=== PATIENT | female | born 1980 | race Caucasian/White ===

== ENCOUNTER → 2016-08-14 | Outpatient (CLI) | payer SELFPAY ==
[~2016-08-14] MED LIST: *MEPERIDINE 25 MG INJ VIAL PERIprocedural Use ONLY ONE; IBUP600 PO; PREN0.01 PO; ZOLO50TA PO
[2016-08-14 11:35] LABS: AUTOMATED NEUTROPHIL # 8.1 TH/MM3 (1.8-7.7); BASOPHIL % 0.4 % (0.0-2.0); EOSINOPHIL # 0.1 TH/MM3 (0-0.4); EOSINOPHIL % 0.8 % (0.0-4.0); HEMATOCRIT 39.6 % (35.0-46.0); HEMO FLAGS DIFF FINAL; LYMPH % 14.8 % (9.0-44.0); LYMPHOCYTE # 1.6 TH/MM3 (1.0-4.8); MEAN CELL VOLUME 85.3 FL (80.0-100.0); MEAN CORPUSCULAR HEMOGLOBIN 29.7 PG (27.0-34.0); MEAN CORPUSCULAR HGB CONC 34.8 % (32.0-36.0); MONO % 7.4 % (0.0-8.0); NEUT % 76.6 % (16.0-70.0); PLATELET COUNT 225 TH/MM3 (150-450); RED BLOOD COUNT 4.64 MIL/MM3 (4.00-5.30); RED CELL DISTRIBUTION WIDTH 12.6 % (11.6-17.2); WHITE BLOOD COUNT 10.5 TH/MM3 (4.0-11.0)
== END ==
LOC: CPRE 10:36
PROVIDERS: ATTEND Obstetrics & Gynecology
DX: O02.1 Missed abortion (principal); Z01.812 Encounter for preprocedural laboratory examination
CPT/HCPCS: 36415; 85025; 86850; 86900; 86901; J2175

== ENCOUNTER → 2016-08-15 | Day surgery (SDC) | payer OTHER ==
--- NOTE | 2016-08-14 13:15 | MH ---
cc: JONAS OKEEFE M.D. DATE OF ADMISSION: 08/15/2016 DATE OF 1980 PATIENT HISTORY The patient is a 36-year-old female, 2, para 1. Last menstrual period was approximately June 09, 2016. The patient presents for new obstetrical care revealing a nonviable gestation measuring 6 weeks and 1 day. The patient's gestational age based from her last menstrual cycle would have been 9 weeks, 3 days. A nonviable pole and no cardiac activity documented by transvaginal ultrasound, fetus measuring 6 weeks and 1 day. PAST MEDICAL HISTORY The patient denies any systemic or chronic disease state. ALLERGIES She has no known drug allergies. SURGICAL HISTORY 1. She had a history of Bartholin's cyst in 2007 with revision in 2011. 2. Status post LEEP excisional biopsy of the cervix in 2005. CURRENT MEDICATIONS vitamins. SOCIAL HISTORY She does not use alcohol, tobacco or any illicit substances. She is . She is a pharmacist. OBSTETRICAL HISTORY The patient had a full-term delivery, a healthy female on June 15, 2015. FAMILY HISTORY Noncontributory. PHYSICAL EXAMINATION GENERAL: The patient is well-appearing, well-nourished female in no acute distress. VITAL SIGNS: Stable. Blood pressure is 120/82, pulse and respiratory rate normal. She is afebrile. HEENT/NECK: No adenopathy or thyromegaly. LUNGS: Clear in all acevedo. CARDIAC: Regular rate and rhythm. ABDOMEN: Flat, soft, nontender. No rebound or guarding. EXTREMITIES: Symmetrical, full range of motion. There is no cyanosis, clubbing or edema. NEUROLOGIC: Exam is grossly intact, nonfocal. PELVIC EXAM: Deferred. Visualization of the cervix was closed. There was no vaginal bleeding identified. ASSESSMENT The patient at 9 weeks intrauterine gestation with a nonviable pole at 6 weeks consistent with a missed . PLAN OF MANAGEMENT 1. D&C with suctioned. 2. The patient's blood type is A-negative. RhoGAM indicated. MD RODNEY Davison/SHAKIRA /12:57 PM /1:07 PM
[~2016-08-15] MED LIST changes: -*MEPERIDINE 25 MG INJ VIAL PERIprocedural Use ONLY ONE; +CHLORHEXIDINE GLUCONATE 2 % 1 PACK (2 CLOTHS) TOPICAL PRN; +DEXAMETHASONE SOD PHOS 4 MG/ML VIAL ONE; +DO NOT ADM ANY ANTICOAGULANT DRUGS PRN; -IBUP600 PO; +IBUPROFEN 600 MG TAB PO PRN; +INSULIN HUMAN REGULAR 1,000 UNITS/10 ML VIAL SQ PRN; +KETOROLAC TROMETHAMINE 30 MG/ML (IVP) VIAL IVP PRN; +KETOROLAC TROMETHAMINE 60 MG/2 ML (IM) VIAL IM ONE; +LACTATED RINGER'S 1000 ML INJ 1,000 ML IV ONE; +LACTATED RINGER'S 1000 ML INJ 1,000 ML IV SCH; +LACTATED RINGER'S 1000 ML IV PRN; +LORazepam 0.5 MG TAB PO PRN; +MEPERIDINE HCL 25 MG/ML VIAL IV ONE; +MEPERIDINE HCL 25 MG/ML VIAL IV PUSH ONE; +METHYLERGONOVINE MALEATE 0.2 MG/ML VIAL IM ONE; +METOPROLOL TARTRATE 25 MG TAB PO PRN; +MIDAZOLAM HCL 2 MG/2 ML VIAL ONE; +ONDANSETRON HCL 4 MG/2 ML VIAL IV PUSH ONE; +ONDANSETRON HCL 4 MG/2 ML VIAL IVP PRN; +OXYTOCIN 10 UNIT/ML AMP ONE; +POVIDONE IODINE 5% (ANTISEPSIS KIT) 4 APPLICATIONS EACH NARE PRN; -PREN0.01 PO; +PROPOFOL 200 MG/20 ML AMP IV ONE; +RHO D IMMUNE GLOBULIN IV ONE; +SODIUM CHLORID 0.9% 500 ML IV PRN; +SODIUM CHLORIDE 0.9% FLUSH 10 ML FLUSH IV FLUSH PRN; +SODIUM CHLORIDE 0.9% FLUSH 10 ML FLUSH IV FLUSH SCH; -ZOLO50TA PO; +ceFAZolin 2 GM PREMIX 50 ML IV SCH; +ceFAZolin 2 GM PREMIX 50 ML ONE; +oxyCODONE/ACETAMINOPHEN 5 MG/325 MG TAB PO PRN
[2016-08-15 08:16] VITALS: BP 101/63; PULSE 66; RESP 16; TEMP 98.4; O2SAT 100
--- NOTE | 2016-08-15 11:34 | MP ---
cc: JONAS OKEEFE M.D. DATE OF SURGERY: 08/15/2016 DATE OF : 1980 PREOPERATIVE DIAGNOSIS Approximately nine weeks gestation with missed AB, ultrasound confirmed nonviable six-week intrauterine , no cardiac activity. The patient's blood type is A-negative, RhoGAM indicated. PROCEDURE D&C with suction, exam under anesthesia. POSTOPERATIVE DIAGNOSIS Approximately nine weeks gestation with missed AB, ultrasound confirmed nonviable six-week intrauterine , no cardiac activity. The patient's blood type is A-negative, RhoGAM indicated. SURGEON Donald ANESTHESIA General LMA. ESTIMATED BLOOD LOSS Minimal. DRAINS None. OPERATIVE FINDINGS Uterus was anteverted, measured about 9 cm in length. SPECIMEN Products of conception. INDICATION FOR PROCEDURE The patient presented for her first obstetrical visit. Ultrasound revealed a six-week intrauterine gestation with no cardiac activity. She would have been approximately nine weeks based on her last menstrual period. After reviewing the options the patient elected for D&C with suction. The patient's blood type is A-negative, RhoGAM indicated. DETAILS OF PROCEDURE The patient was taken to the operating room and under general anesthesia had an LMA placed. She was carefully positioned in dorsal lithotomy position using candy-cane stirrups. She received Ancef one gram prophylactically. She had sequentials placed on the lower extremities for VTE prophylaxis. After she was prepped and draped a timeout was conducted and agreed by all present in the room. A simple bivalve retractor was used to examine the cervix which was closed, no active bleeding. A single-tooth tenaculum was secured anteriorly and then the uterus was sounded to about 9 cm. The cervix was then dilated and then a #8 curved suction tip was used to evacuate the products of conception. This was followed by the use of a handheld curette to examine the cavity and confirm removal of all products of conception. The patient received Methergine 0.2 mg and RhoGAM was ordered as indicated. At the completion of the case there was a small anterior cervical laceration from the tenaculum site which was sutured with a simple interrupted suture of 2-0 chromic. Irrigation of the vaginal vault was conducted, no active bleeding or hematoma. The patient was stable. At the completion of the case the patient was taken to the recovery room on room air. MD RODNEY Davison/GISELLA /10:53 AM /11:28 AM
[2016-08-15 12:45] VITALS: BP 103/58; PULSE 59; RESP 16; TEMP 98.2; O2SAT 100
== END | disposition home or self-care (01) ==
LOC: HSDC 07:36
PROVIDERS: ATTEND Obstetrics & Gynecology
DX: O02.1 Missed abortion (principal)
CPT/HCPCS: 59820; 88305; 90384; J0690; J1100; J1885; J2175; J2210; J2250; J2405; J2590; J2792; J3010; J7120; J2790

== ENCOUNTER → 2016-12-31 | Outpatient (CLI) | payer OTHER ==
--- NOTE | 2016-12-31 10:40 | EKG ---
Date Performed: 12/31/2016 Time Performed: 08:47:14 PTAGE: 36 years EKG: Sinus arrhythmia. Possible anterior infarct - age undetermined Inferior/lateral T wave landa ges are nonspecific Abnormal ECG NO PREVIOUS TRACING DOCTOR: Ga Armenta Interpretating Date/Time 12/31/2016 10:37:49
--- NOTE | 2017-01-03 19:40 | HM ---
Date Performed: 12/31/2016 Time Performed: 07:56:00 HOOKUP DATE: 12/31/16 07:56:00 AM Mon ANALYSIS START TIME: 12/31/2016 8:01:00 AM ANALYSIS END TIME: 01/01/2017 8:05:00 AM PATIENT AGE: 36 PATIENT HEIGHT PATIENT WEIGHT DRUG LIST PATIENT DIAGNOSIS TEST NARRATIVE: The patient's average heart rate was 82 BPM. Heart rates greater than 120 B PM were noted 1% of the time. No episodes of bradycardia were noted. No pauses exceeding 2.0 sec onds were noted. 9 ventricular ectopics, which represented < 1% of the total beat count, were not ed. The highest ventricular ectopic frequency occurred from 03:00 PM to 04:00 PM Mon. During this t rajiv 2 VE(s) occurred. Ventricular ectopics were observed as 9 isolated beat(s) only. No couplets or runs were noted. No supraventricular ectopics were noted. No episodes of ST depression (defi estefania as -1.0 mm or more) were noted in channel 1. No episodes of ST depression (defined as -1.0 mm or more) were noted in channel 2. No episodes of ST depression (defined as -1.0 mm or more) were noted in channel 3. TEST INTERPRETATION: Patient undergoes a holter monitor for unstated indications. She remain in Sinus rhythm throughout the monitoring session with a heart rate varying from 50 to 138 BPM. The tachycardia is a ssociated with motion artifact, but looks to be sinus tachycardia appearing about 2.25PM with a maxim um rate of 138 BPM. This occurs while patient is eating lunch and when the patient is more active. Th ere is one episode of a racing heart at 10.55 AM and no specific print out is made, but 10.01 and 11. 01 AM the patient is in completely normal sinus rhythm. Rare PVC'S are noted. Conclusion: A relativel y normal holter monitor, except for episode of sinus tachycardia which is probably associated with ac tivity One episode of a racing heart, but without a specific print out, the print out close to that t rajiv shows just sinus rhythm Signed by : Poonam Nazario
== END ==
LOC: HCAV 08:29
PROVIDERS: ATTEND Obstetrics & Gynecology
DX: I49.8 Other specified cardiac arrhythmias (principal)
CPT/HCPCS: 93005; 93225; 93226

== ENCOUNTER → 2017-03-06 | Outpatient (CLI) | payer OTHER | LOC: HPND 08:05 | PROVIDERS: ATTEND Obstetrics & Gynecology | DX: O35.1XX0 Maternal care for (suspected) chromosomal abnormality in fetus, not applicable or unspecified (principal) | CPT/HCPCS: 76811 ==

== ENCOUNTER → 2017-04-03 | Outpatient (CLI) | payer OTHER | LOC: HPND 11:23 | PROVIDERS: ATTEND Obstetrics & Gynecology | DX: O35.1XX0 Maternal care for (suspected) chromosomal abnormality in fetus, not applicable or unspecified (principal) | CPT/HCPCS: 36415; 76811; 76816; 96372 ==

== ENCOUNTER → 2017-05-01 | Outpatient (CLI) | payer OTHER | LOC: HPND 09:02 | PROVIDERS: ATTEND Obstetrics & Gynecology | DX: O35.1XX0 Maternal care for (suspected) chromosomal abnormality in fetus, not applicable or unspecified (principal) | CPT/HCPCS: 76816 ==

== ENCOUNTER → 2017-05-29 | Outpatient (CLI) | payer OTHER | LOC: HPND 09:14 | PROVIDERS: ATTEND Obstetrics & Gynecology | DX: O35.1XX0 Maternal care for (suspected) chromosomal abnormality in fetus, not applicable or unspecified (principal) | CPT/HCPCS: 76816 ==

== ENCOUNTER 2017-07-02 18:21 | Inpatient (IN) | payer OTHER ==
[~2017-07-02] VITALS: Ht 162.6 cm; Wt 81.0 kg
[2017-07-02] MEDS ORDERED: SODIUM CHLORIDE 0.9% FLUSH 10 ML FLUSH IV FLUSH PRN (20:00)
[2017-07-02] MEDS ORDERED: DINOPROSTONE 10 MG INSERT-LEAVE FOR 12 HOURS VAGINAL ONE (20:00)
[2017-07-02] MEDS ORDERED: ACETAMINOPHEN 325 MG TAB PO PRN (20:15)
[2017-07-02 20:21] VITALS: BP 118/70; PULSE 78
[2017-07-02 20:55] LABS: AUTOMATED NEUTROPHIL # 6.4 TH/MM3 (1.8-7.7); BASOPHIL % 0.4 % (0.0-2.0); EOSINOPHIL # 0.1 TH/MM3 (0-0.4); EOSINOPHIL % 0.6 % (0.0-4.0); HEMATOCRIT 35.7 % (35.0-46.0); HEMOGLOBIN 12.3 GM/DL (11.6-15.3); MEAN CELL VOLUME 87.8 FL (80.0-100.0); MEAN CORPUSCULAR HEMOGLOBIN 30.2 PG (27.0-34.0); MEAN CORPUSCULAR HGB CONC 34.4 % (32.0-36.0); MONOCYTE # 0.7 TH/MM3 (0-0.9); PLATELET COUNT 202 TH/MM3 (150-450); RED BLOOD COUNT 4.06 MIL/MM3 (4.00-5.30); RED CELL DISTRIBUTION WIDTH 14.1 % (11.6-17.2); WHITE BLOOD COUNT 9.2 TH/MM3 (4.0-11.0)
[2017-07-02] MEDS ORDERED: ZOLPIDEM TARTRATE 5 MG TAB PO PRN (21:00)
[2017-07-02 21:05] LABS: BACTERIA, URINE RARE /hpf; BILIRUBIN, URINE NEG (NEG); BLOOD, URINE NEG (NEG); GLUCOSE,URINE NEG (NEG); KETONE, URINE NEG (NEG); MUCUS URINE FEW /lpf (OCC); NITRITE,URINE NEG (NEG); SQUAMOUS EPITHELIAL CELL URINE <1 /hpf (0-5); URINE COLOR LIGHT-YELLOW (YELLW/STRAW); URINE LEUKOCYTE ESTERASE NEG (NEG)
[2017-07-02 21:09] LABS: ALBUMIN 3.1 GM/DL (3.4-5.0); AST (GOT) 19 U/L (15-37); BICARBONATE 22.9 MEQ/L (21.0-32.0); BLOOD UREA NITROGEN 8 MG/DL (7-18); CHLORIDE 105 MEQ/L (98-107); CREATININE 0.77 MG/DL (0.50-1.00); GLOMERULAR FILTRATION RATE 86 ML/MIN (>89); GLUCOSE,RANDOM 115 MG/DL (74-106); SODIUM (NA) 139 MEQ/L (136-145)
[2017-07-02 21:10] LABS: ALT (GPT) 19 U/L (10-53)
[2017-07-02 21:12] LABS: ALKALINE PHOSPHATASE 131 U/L (45-117); TOTAL BILIRUBIN ADULT 0.3 MG/DL (0.2-1.0)
[2017-07-02 22:00] VITALS: RESP 18
[2017-07-02 23:00] VITALS: RESP 18
[2017-07-03] VITALS (60 sets, daily range): BP systolic 78–157; BP diastolic 36–126; PULSE 18–106; RESP 16–19; TEMP 97.6–98.4
[2017-07-03] MEDS ORDERED: NS 1000 ML IV PRN (06:45)
[2017-07-03] MEDS ORDERED: LIDOCAINE HCL 1% 50 ML VIAL I-DERMAL PRN (06:45)
[2017-07-03] MEDS ORDERED: LACTATED RINGER'S 1000 ML BOLUS IV PRN (06:45)
[2017-07-03] MEDS ORDERED: LIDOCAINE HCL 1% 50 ML VIAL INFIL PRN (06:45)
[2017-07-03] MEDS ORDERED: MINERAL OIL 10 ML VIAL TOPICAL PRN (06:45)
[2017-07-03] MEDS ORDERED: ONDANSETRON HCL 4 MG/2 ML VIAL IV PUSH PRN (06:45)
[2017-07-03] MEDS ORDERED: CITRIC ACID-SODIUM CITRATE LIQ 30 ML UDC PO SCH (06:45)
[2017-07-03] MEDS ORDERED: OXYTOCIN 30 UNITS 500ML PREMIX IV ONE (06:45)
[2017-07-03] MEDS ORDERED: NS 500 ML BOLUS IV PRN (06:45)
--- NOTE | 2017-07-03 08:20 | MH ---
cc: Reji Bennett MD DATE OF ADMISSION: 07/02/2017 CHIEF COMPLAINT: The patient admitted for induction of labor at term. HISTORY OF PRESENT ILLNESS: The patient is a 36-year-old female, 3, para 1-0-1-1, previous vaginal delivery at 38 weeks in 2015. The patient's estimated date of confinement is 07/04/2017. She is 39 weeks and 6 days, who presents for Cervidil. The patient's course has been noted for ventriculomegaly of the followed closely by maternal medicine. Recent ultrasounds have been normalized. Estimated weight of the baby is approximately 7 pounds. COURSE: The patient's blood type is A negative. STD testing, glucose screening were all normal. The patient's group B strep status is negative. PAST MEDICAL HISTORY: History of LEEP biopsy of the cervix, history of Bartholin cyst. ALLERGIES: THE PATIENT HAS NO KNOWN DRUG ALLERGIES. CURRENT MEDICATIONS: Include vitamins only. REVIEW OF SYSTEMS: She denies any systemic or chronic disease. SOCIAL HISTORY: She denies use of alcohol, tobacco or illicit substances. She is . She is a pharmacist. PHYSICAL EXAMINATION: GENERAL: The patient is a well-appearing, well-nourished female, in no acute distress. VITAL SIGNS: Stable. Blood pressure is 124/80. heart tones are in the 140s. Recent weight gain is approximately 6 pounds, which is consistent with slight edema. HEENT: Normal. NECK: Supple, full range of motion. LUNGS: Clear in all acevedo. CARDIAC: Regular rate and rhythm. ABDOMEN: Gravid, full-term. Fundal height is 42 weeks. PELVIC: Cervix is posterior soft, 50%, fingertip, vertex presentation. EXTREMITIES: Symmetrical, full range of motion. No cyanosis, clubbing. She has 2+ pitting edema below the knee. NEUROLOGIC: Grossly intact, nonfocal. ASSESSMENT: The patient at 39+ weeks, 3, para 1, group B strep status negative. History of ventriculomegaly of the fetus, defined as mild. The patient presents for Cervidil cervical ripening. Reji Bennett MD [facility] , 03:04 PM , 03:24 PM
[2017-07-03] MEDS ORDERED: OXYTOCIN 30 UNITS/NS 500ML PREMIX IV PRN (08:45)
[2017-07-03] MEDS ORDERED: ePHEDrine/NS 25 MG/5 ML SYRINGE ONE (13:56)
[2017-07-03] MEDS ORDERED: fentaNYL 2MCG-BUPIV 0.125% INJ 100 ML ONE (13:57)
[2017-07-03] MEDS ORDERED: LIDOCAINE 1%/EPINEPHrine 1:100,000 SOLN 30 ML VIAL ONE (14:09)
[2017-07-03] MEDS ORDERED: LIDOCAINE HCL 1% PF 5 ML AMPULE ONE (14:09)
[2017-07-03] MEDS ORDERED: LIDOCAINE HCL 1% PF 30 ML VIAL ONE (15:18)
[2017-07-03] MEDS ORDERED: OXYTOCIN 30 UNITS-500ML PREMIX 500 ML IV SCH (15:45)
[2017-07-03] MEDS ORDERED: OXYTOCIN 10 UNIT/ML AMP XX PRN (15:45)
[2017-07-03] MEDS ORDERED: WITCH HAZEL 50%/GLYCERIN 12.5% 40 PAD JAR TOPICAL PRN (15:45)
[2017-07-03] MEDS ORDERED: SODIUM CHLORIDE 0.9% FLUSH 10 ML FLUSH IV FLUSH PRN (15:45)
[2017-07-03] MEDS ORDERED: ONDANSETRON ODT 4 MG TAB PO PRN (15:45)
[2017-07-03] MEDS ORDERED: DOCUSATE SODIUM 50 MG/SENNA 8.6 MG TAB PO PRN (15:45)
[2017-07-03] MEDS ORDERED: BENZOCAINE 20% TOPICAL SPRAY 60 ML CAN TOPICAL PRN (15:45)
[2017-07-03] MEDS ORDERED: ALUMINUM/MAGNESIUM/SIMETH 30 ML CUP PO PRN (15:45)
[2017-07-03] MEDS ORDERED: ACETAMINOPHEN 325 MG TAB PO PRN (15:45)
--- NOTE | 2017-07-03 15:45 | PD.OB.DELI ---
Gest age assessed date: Jul 02, 2017 Gest age assessed time: 18:00 Pt started active labor?: No Medical induction of labor?: Yes Medical induction start date: Jul 02, 2017 Medical induction start time: 18:00 Artificial rupture of membrane: Yes Artificial ROM date: Jul 03, 2017 Artifical ROM time: 12:30 Anesthesia: Epidural Episiotomy: None Vaginal Delivery: Normal Presentation: Occiput anterior Nuchal Cord: None Delayed cord clamping (45 sec): Yes : Male Delivery date: Jul 03, 2017 Delivery time: 15:31 One Minute : 8 Five Minute : 9 Placenta: Spontaneous delivery Laceration: No lacerations Estimated blood loss: 200 cc Reji Bennett MD Jul 03, 2017 15:45
[2017-07-03] MEDS ORDERED: DIPHTH/TETANUS/ACEL PERTUSSIS (BOOSTER) 0.5 ML VIAL/PFS IM ONE (16:00)
[2017-07-03] MEDS ORDERED: MEASLES, MUMPS, RUBELLA VACCINE 0.5 ML VIAL SQ ONE (16:00)
[2017-07-03] MEDS ORDERED: ePHEDrine/NS 25 MG/5 ML SYRINGE IV PUSH PRN (17:00)
[2017-07-03] MEDS ORDERED: fentaNYL 2MCG-BUPIV 0.125% 150 ML EPIDURAL PRN (17:00)
[2017-07-03] MEDS ORDERED: DO NOT ADMINISTER ANTICOAGULANTS PRN (17:00)
[2017-07-03] MEDS ORDERED: NO SYSTEM NARCOTICS PRN (17:00)
[2017-07-03] MEDS: SODIUM CHLORIDE 0.9% FLUSH 10 ML FLUSH IV FLUSH SCH (19:09)
[2017-07-03] MEDS: IBUPROFEN 800 MG TAB PO PRN (19:45)
[2017-07-03] MEDS ORDERED: ZOLPIDEM TARTRATE 5 MG TAB PO PRN (21:00)
[2017-07-03] MEDS: LACTATED RINGER'S 1000 ML IV SCH (22:11)
[2017-07-04] MEDS: IBUPROFEN 800 MG TAB PO PRN ×2 (07:56→16:59)
--- NOTE | 2017-07-04 07:57 | HHI.OB ---
Subjective Post Day: 1 Remarks mother doing well, awaiting head US on baby due to ventriculomegaly, Objective Vitals/I&O Vital Signs Date Time Temp Pulse Resp B/P (MAP) Pulse Ox O2 Delivery O2 Flow Rate FiO2 07/03/17 20:36 98.2 77 18 106/75 (85) 07/03/17 17:35 68 16 115/67 (83) 07/03/17 17:35 98.2 07/03/17 16:47 19 07/03/17 16:45 66 110/67 (81) 07/03/17 16:30 62 117/67 (84) 07/03/17 16:20 18 07/03/17 15:57 18 07/03/17 15:45 118/98 (105) 07/03/17 15:44 86 112/69 (83) 07/03/17 15:30 100 110/70 (83) 07/03/17 15:15 85 91/78 (82) 07/03/17 15:13 18 07/03/17 15:05 91 07/03/17 15:00 124/71 (88) 07/03/17 15:00 90 07/03/17 14:55 100 07/03/17 14:55 99 120/75 (90) 07/03/17 14:51 100 133/88 (103) 07/03/17 14:50 100 07/03/17 14:45 93 07/03/17 14:45 93 131/88 (102) 07/03/17 14:41 81 109/61 (77) 07/03/17 14:40 78 07/03/17 14:35 83 07/03/17 14:35 78 103/62 (76) 07/03/17 14:31 85 90/47 (61) 07/03/17 14:30 98.4 07/03/17 14:30 80 07/03/17 14:27 18 07/03/17 14:25 82 07/03/17 14:25 74 108/51 (70) 07/03/17 14:21 84 112/53 (72) 07/03/17 14:20 77 07/03/17 14:19 92 91/69 (76) 07/03/17 14:15 80 99/55 (70) 07/03/17 14:15 92 07/03/17 14:12 106 78/36 (50) 07/03/17 14:07 100 157/126 (136) 07/03/17 14:05 87 07/03/17 13:55 74 07/03/17 13:50 84 07/03/17 13:45 80 07/03/17 13:40 80 07/03/17 13:35 74 07/03/17 13:25 85 07/03/17 13:15 79 07/03/17 13:03 73 132/83 (99) 07/03/17 13:02 18 07/03/17 12:55 79 07/03/17 12:50 83 07/03/17 12:45 84 07/03/17 11:46 76 128/76 (93) 07/03/17 11:46 98.3 18 07/03/17 11:16 79 122/77 (92) 07/03/17 11:15 18 07/03/17 10:46 81 18 127/81 (96) 07/03/17 10:15 97.6 18 07/03/17 10:13 91 121/74 (90) Objective Remarks GENERAL: Well-nourished, well-developed patient. CARDIOVASCULAR: Regular rate and rhythm without murmurs, gallops, or rubs. RESPIRATORY: Breath sounds equal bilaterally. No accessory muscle use. ABDOMEN/GI: Abdomen soft, non-tender. Fundus: Firm, non-tender at umbilicus. GENITOURINARY: Light to moderate bleeding. EXTREMITIES: No cyanosis or edema, non-tender, without signs of DVT. Medications and IVs Current Medications Medications (Trade) Dose Ordered Sig/Kelvin Route Start Time Stop Time Status Last Admin (NS Flush) 2 ml UNSCH PRN IV FLUSH 07/02/17 20:00 (Ambien) 5 mg HS PRN PO 07/02/17 21:00 (Tylenol) 650 mg Q6H PRN PO 07/02/17 20:15 Lactated Ringer's 1,000 ml @ 125 mls/hr Q8H IV 07/03/17 06:45 Lactated Ringer's 1,000 ml @ 3,000 mls/hr BOLUS PRN IV 07/03/17 06:45 Sodium Chloride 500 ml @ 1,000 mls/hr BOLUS PRN IV 07/03/17 06:45 Sodium Chloride 1,000 ml @ 100 mls/hr Q10H PRN IV 07/03/17 06:45 (Xylocaine 1% Inj (50 ml)) 0.1 ml UNSCH X1 PRN I-DERMAL 07/03/17 06:45 07/05/17 06:44 (Bicitra Liq) 30 ml PLASTER MAKER PO 07/03/17 06:45 07/06/17 06:44 (Zofran Inj) 4 mg Q6H PRN IV PUSH 07/03/17 06:45 (fentaNYL INJ) 50 mcg Q1H PRN IV PUSH 07/03/17 06:45 (fentaNYL INJ) 100 mcg Q1H PRN IV PUSH 07/03/17 06:45 07/03/17 13:52 (Xylocaine 1% Inj (50 ml)) 10 ml UNSCH X1 PRN INFIL 07/03/17 06:45 07/05/17 06:44 (Muri-Lube Oil) 10 ml UNSCH PRN TOPICAL 07/03/17 06:45 Oxytocin 500 ml @ 0 mls/hr TITRATE PRN IV 07/03/17 08:45 07/03/17 10:14 (Pitocin Inj) 20 units UNSCH X1 PRN XX 07/03/17 15:45 07/04/17 15:44 (NS Flush) 2 ml BID IV FLUSH 07/03/17 21:00 (NS Flush) 2 ml UNSCH PRN IV FLUSH 07/03/17 15:45 (Tylenol) 650 mg Q4H PRN PO 07/03/17 15:45 (Motrin) 800 mg Q8H PRN PO 07/03/17 15:45 07/03/17 19:45 (Americaine 20% Top Spr) 1 spray Q4H PRN TOPICAL 07/03/17 15:45 07/03/17 19:46 (Tucks Pads) 1 applic QID PRN TOPICAL 07/03/17 15:45 07/03/17 19:46 (Paola-Colace) 2 tab Q12H PRN PO 07/03/17 15:45 07/03/17 19:45 (Ambien) 5 mg HS PRN PO 07/03/17 21:00 (Mag-Al Plus Susp Liq) 15 ml Q8H PRN PO 07/03/17 15:45 (Zofran Odt) 4 mg Q6H PRN PO 07/03/17 15:45 Miscellaneous Information No systemic narcotics to be given except... UNSCH PRN .XX 07/03/17 17:00 07/04/17 16:59 Miscellaneous Information DO NOT ADMINISTER ANY ANTICOAGUL... UNSCH PRN .XX 07/03/17 17:00 07/04/17 16:59 Fentanyl/ Bupivacaine/ Sodium Chlor 150 ml @ 0 mls/hr TITRATE PRN EPIDURAL 07/03/17 17:00 (ePHEDrine/NS 25 MG/5 ML SYR) 10 mg UNSCH PRN IV PUSH 07/03/17 17:00 07/04/17 16:59 07/03/17 18:09 Assessment/Plan Problem List: (1) (normal spontaneous vaginal delivery) ICD Codes: O80 - Encounter for full-term uncomplicated delivery Status: Acute Assessment and Plan PPD #1 , awaiting head US on baby routine PP care Discharge Planning routine Attending Attestation pt seen by Sanjuanita Quesada MD Jul 04, 2017 07:57
[2017-07-04] MEDS: LACTATED RINGER'S 1000 ML IV SCH ×2 (14:45→19:43)
[2017-07-04] MEDS: SODIUM CHLORIDE 0.9% FLUSH 10 ML FLUSH IV FLUSH SCH (19:42)
[2017-07-04 20:00] VITALS: BP 107/56; PULSE 73; RESP 18; TEMP 98; O2SAT 98
[2017-07-04 22:35] VITALS: RESP 18
[2017-07-05] MEDS: IBUPROFEN 800 MG TAB PO PRN (04:49)
[2017-07-05 08:00] VITALS: BP 121/70; PULSE 83; RESP 20; TEMP 98.1; O2SAT 98
--- NOTE | 2017-07-05 08:27 | HHI.OB ---
Subjective Post Day: 2 Remarks doing well, ready for discharge, infant circ'd by me this AM Objective Vitals/I&O Vital Signs Date Time Temp Pulse Resp B/P (MAP) Pulse Ox O2 Delivery O2 Flow Rate FiO2 07/05/17 08:00 98.1 83 20 121/70 (87) 98 07/04/17 22:35 18 07/04/17 20:00 107/56 (73) 07/04/17 20:00 98.0 73 18 98 Objective Remarks GENERAL: Well-nourished, well-developed patient. CARDIOVASCULAR: Regular rate and rhythm without murmurs, gallops, or rubs. RESPIRATORY: Breath sounds equal bilaterally. No accessory muscle use. ABDOMEN/GI: Abdomen soft, non-tender. Fundus: Firm, non-tender at umbilicus. GENITOURINARY: Light bleeding. EXTREMITIES: No cyanosis or edema, non-tender, without signs of DVT. Medications and IVs Current Medications Medications (Trade) Dose Ordered Sig/Kelvin Route Start Time Stop Time Status Last Admin (NS Flush) 2 ml UNSCH PRN IV FLUSH 07/02/17 20:00 (Ambien) 5 mg HS PRN PO 07/02/17 21:00 (Tylenol) 650 mg Q6H PRN PO 07/02/17 20:15 Lactated Ringer's 1,000 ml @ 125 mls/hr Q8H IV 07/03/17 06:45 Lactated Ringer's 1,000 ml @ 3,000 mls/hr BOLUS PRN IV 07/03/17 06:45 Sodium Chloride 500 ml @ 1,000 mls/hr BOLUS PRN IV 07/03/17 06:45 Sodium Chloride 1,000 ml @ 100 mls/hr Q10H PRN IV 07/03/17 06:45 (Bicitra Liq) 30 ml STEM SETTER PO 07/03/17 06:45 07/06/17 06:44 (Zofran Inj) 4 mg Q6H PRN IV PUSH 07/03/17 06:45 (fentaNYL INJ) 50 mcg Q1H PRN IV PUSH 07/03/17 06:45 (fentaNYL INJ) 100 mcg Q1H PRN IV PUSH 07/03/17 06:45 07/03/17 13:52 (Muri-Lube Oil) 10 ml UNSCH PRN TOPICAL 07/03/17 06:45 Oxytocin 500 ml @ 0 mls/hr TITRATE PRN IV 07/03/17 08:45 07/03/17 10:14 (NS Flush) 2 ml BID IV FLUSH 07/03/17 21:00 (NS Flush) 2 ml UNSCH PRN IV FLUSH 07/03/17 15:45 (Tylenol) 650 mg Q4H PRN PO 07/03/17 15:45 (Motrin) 800 mg Q8H PRN PO 07/03/17 15:45 07/05/17 04:49 (Americaine 20% Top Spr) 1 spray Q4H PRN TOPICAL 07/03/17 15:45 07/03/17 19:46 (Tucks Pads) 1 applic QID PRN TOPICAL 07/03/17 15:45 07/03/17 19:46 (Paola-Colace) 2 tab Q12H PRN PO 07/03/17 15:45 07/03/17 19:45 (Ambien) 5 mg HS PRN PO 07/03/17 21:00 (Mag-Al Plus Susp Liq) 15 ml Q8H PRN PO 07/03/17 15:45 (Zofran Odt) 4 mg Q6H PRN PO 07/03/17 15:45 Fentanyl/ Bupivacaine/ Sodium Chlor 150 ml @ 0 mls/hr TITRATE PRN EPIDURAL 07/03/17 17:00 Assessment/Plan Problem List: (1) (normal spontaneous vaginal delivery) ICD Codes: O80 - Encounter for full-term uncomplicated delivery Status: Acute Assessment and Plan PPD #2 d/c to home today office f/u [address] Bennett Discharge Planning routine Lakshmi Dee MD Jul 05, 2017 08:27
[2017-07-05] MEDS ORDERED: IBUP1TAB7 PO (08:28)
--- NOTE | 2017-07-05 08:29 | HHI.DCPOC ---
Discharge Care Plan Diagnosis: (1) (normal spontaneous vaginal delivery) Your Health Problems Are: Vaginal delivery Report Symptoms to Your Doctor -Temperature above 100.5 degrees -Redness, of incision or excessive or foul smelling drainage -Unusual pain or calf pain -Increased vaginal bleeding -Painful or difficulty urinating -Feelings of extreme sadness or anxiety after 2 weeks Goals to Promote Your Health * To prevent worsening of your condition and complications * To maintain your health at the optimal level Directions to Meet Your Goals Take your medications as prescribed Follow your dietary instruction Follow activity as directed Ensure plenty of rest for recovery Drink fluids for hydration Keep your appointments as scheduled Take your immunizations and boosters as scheduled If your symptoms worsen call your PCP, if no PCP go to Urgent Care Center or Emergency Room Smoking is Dangerous to Your Health. Avoid second hand smoke Call the 24-hour crisis hotline for domestic abuse at Lakshmi Dee MD Jul 05, 2017 08:29
== END 2017-07-05 12:50 | disposition home or self-care (01) | DRG 775 ==
LOC: H2EB 18:21 → H1EA 07-03 17:37
PROVIDERS: ADMIT Obstetrics & Gynecology; ATTEND Obstetrics & Gynecology
PROC: 10E0XZZ Delivery of Products of Conception, External Approach (ICD-10-PCS; principal; 2017-07-02)
PROC: 3E0P7VZ Introduction of Hormone into Female Reproductive, Via Natural or Artificial Opening (ICD-10-PCS; 2017-07-02)
PROC: 10907ZC Drainage of Amniotic Fluid, Therapeutic from Products of Conception, Via Natural or Artificial Opening (ICD-10-PCS; 2017-07-02)
DX: O36.8930 Maternal care for other specified fetal problems, third trimester, not applicable or unspecified (principal); Z37.0 Single live birth; Z3A.39 39 weeks gestation of pregnancy
CPT/HCPCS: 80053; 80307; 81001; 84550; 85025; 85461; 86850; 86900; 86901; 90384; J2590; J2790; J3010